=== PATIENT | female | born 1955 | race Hispanic/Latino ===

== ENCOUNTER 2018-04-13 13:11 | Observation (INO) | payer OTHER ==
[~2018-04-13] VITALS: Ht 142.2 cm; Wt 62.3 kg
[2018-04-13] MEDS ORDERED: ASPIRIN 325 MG TABLET ONE (13:44)
[2018-04-13] MEDS ORDERED: NITROGLYCERIN 1GM/1 INCH PACKET TD ONE (13:45)
[2018-04-13 13:53] LABS: BASOPHILS % (AUTO) 0.8 % (0.0-5.0); EOSINOPHILS % (AUTO) 2.2 % (0.0-8.0); HEMATOCRIT 37.8 % (36-48); LYMPHOCYTES % (AUTO) 24.1 % (21.0-51.0); MEAN CORPUSCULAR HEMOGLOBIN 30.1 pg (27.0-33.0); MEAN CORPUSCULAR HGB CONC 34.4 g/dL (32.0-36.0); MEAN CORPUSCULAR VOLUME 87.6 fL (79-99); MONOCYTES % (AUTO) 4.6 % (3.0-13.0); NEUTROPHILS % (AUTO) 68.3 % (40.0-77.0); PLATELET COUNT (AUTO) 265 K/uL (130-400); RED BLOOD CELL COUNT(AUTO) 4.31 MIL/uL (4.00-5.50); RED CELL DISTRIBUTION WIDTH 14.5 % (11.0-15.5); WHITE BLOOD COUNT (AUTO) 6.4 K/uL (4.8-10.8)
[2018-04-13 14:01] LABS: CREATININE 0.9 mg/dL (0.5-1.5); POTASSIUM 3.7 mmol/L (3.5-5.1)
[2018-04-13 14:08] LABS: ALBUMIN 4.3 g/dL (3.5-5.0); BILIRUBIN,DIRECT 0.1 mg/dL (0.0-0.3); BILIRUBIN,TOTAL 0.5 mg/dL (0.2-1.0); TOTAL PROTEIN, SERUM 8.1 g/dL (6.0-8.3)
[2018-04-13 14:14] LABS: INR 0.93 (0.85-1.15); PARTIAL THROMBOPLASTIN TIME 24.4 SEC (26.3-35.5); PROTHROMBIN TIME 9.8 SEC (9.6-11.6)
[2018-04-13 23:02] LABS: CREATINE KINASE MB 1.1 ng/mL (0.5-3.6); CREATINE KINASE, TOTAL 77 U/L (21-232); MYOGLOBIN 46 ng/mL (10-92); TROPONIN I < 0.04 ng/mL (0.00-0.06)
[2018-04-14] MEDS ORDERED: ENOXAPARIN SODIUM 60 MG/0.6 ML SQ ONE (02:07)
[2018-04-14 02:49] LABS: CREATINE KINASE MB 1.1 ng/mL (0.5-3.6); CREATINE KINASE, TOTAL 80 U/L (21-232); MYOGLOBIN 58 ng/mL (10-92); TROPONIN I < 0.04 ng/mL (0.00-0.06)
[2018-04-14] MEDS ORDERED: ATOR40TA69 PO (08:28)
[2018-04-14] MEDS ORDERED: METF500T6 PO (08:28)
[2018-04-14] MEDS ORDERED: PANT40TA25 PO (08:28)
[2018-04-14] MEDS ORDERED: SERT50TA12 PO (08:28)
[2018-04-14] MEDS ORDERED: OMEG-112 PO (08:28)
[2018-04-14] MEDS ORDERED: CLOP75TA14 PO (08:28)
[2018-04-14] MEDS ORDERED: NITR0.4T SL (08:35)
[2018-04-14] MEDS ORDERED: ATORVASTATIN CALCIUM 10 MG TABLET ONE (08:49)
[2018-04-14] MEDS ORDERED: METOPROLOL TARTRATE 25 MG TAB ONE (11:34)
[2018-04-14] MEDS ORDERED: REGADENOSON 0.4 MG/5 ML PF SYG IVP SCH (13:00)
[2018-04-14 14:40] VITALS: BP 138/75
[2018-04-14] MEDS ORDERED: NITROGLYCERIN 0.4 MG SL TAB SL SCH (15:15)
[2018-04-14 16:12] VITALS: BP 118/73
[2018-04-14] MEDS: INSULIN HUMULIN R 100 UNIT/ML 3ML SQ SCH ×2 (16:20→21:00)
[2018-04-14 17:58] LABS: CREATINE KINASE MB 0.9 ng/mL (0.5-3.6); CREATINE KINASE, TOTAL 79 U/L (21-232); MYOGLOBIN 45 ng/mL (10-92); TROPONIN I < 0.04 ng/mL (0.00-0.06)
[2018-04-14 20:00] VITALS: BP 138/68
[2018-04-14] MEDS ORDERED: SERTRALINE HCL 50 MG TABLET PO SCH (21:00)
[2018-04-14] MEDS ORDERED: ATORVASTATIN CALCIUM 20 MG TABLET PO SCH (21:00)
[2018-04-14] MEDS: METOPROLOL TARTRATE 25 MG TAB PO SCH (21:11)
[2018-04-14] MEDS ORDERED: PNEUMOCOCCAL VACCINE POLYVALENT 0.5 ML/VIAL [PPV] IM ONE (23:00)
[2018-04-14 23:46] VITALS: BP 114/64
[2018-04-15 04:00] VITALS: BP 110/63
[2018-04-15 05:54] LABS: MEAN CORPUSCULAR HEMOGLOBIN 30.3 pg (27.0-33.0); MEAN CORPUSCULAR HGB CONC 34.5 g/dL (32.0-36.0); MEAN CORPUSCULAR VOLUME 87.8 fL (79-99); PLATELET COUNT (AUTO) 251 K/uL (130-400); RED BLOOD CELL COUNT(AUTO) 4.22 MIL/uL (4.00-5.50); RED CELL DISTRIBUTION WIDTH 14.3 % (11.0-15.5); WHITE BLOOD COUNT (AUTO) 6.4 K/uL (4.8-10.8)
[2018-04-15] MEDS: INSULIN HUMULIN R 100 UNIT/ML 3ML SQ SCH ×2 (06:04→11:28)
[2018-04-15 06:09] LABS: CREATININE 0.8 mg/dL (0.5-1.5); MAGNESIUM 2.2 mg/dL (1.80-2.40); POTASSIUM 3.9 mmol/L (3.5-5.1)
[2018-04-15] MEDS ORDERED: PANTOPRAZOLE SODIUM 40 MG TABLET.DR PO SCH (07:30)
[2018-04-15 08:21] VITALS: BP 125/70
[2018-04-15] MEDS: METOPROLOL TARTRATE 25 MG TAB PO SCH (08:30)
[2018-04-15] MEDS ORDERED: FISH OIL 1000 MG/CAP PO SCH (09:00)
[2018-04-15] MEDS ORDERED: ENOXAPARIN SODIUM 40 MG/0.4 ML SYRINGE SQ SCH (09:00)
[2018-04-15] MEDS ORDERED: ASPIRIN 81MG TAB.CHEW PO SCH (09:00)
[2018-04-15] MEDS ORDERED: CLOPIDOGREL BISULFATE 75 MG TAB PO SCH (09:00)
[2018-04-15 11:21] VITALS: BP 116/60
[2018-04-15] MEDS ORDERED: ENOXAPARIN SODIUM 60 MG/0.6 ML SQ SCH (21:00)
== END 2018-04-15 15:30 | disposition home or self-care (01) ==
LOC: EDH 13:11 → EDHIP 14:44 → 4CH 04-14 12:21
PROVIDERS: ADMIT Internal Medicine Infectious Disease; ATTEND Internal Medicine Infectious Disease
DX: I25.110 Atherosclerotic heart disease of native coronary artery with unstable angina pectoris (principal); I10 Essential (primary) hypertension; E11.9 Type 2 diabetes mellitus without complications; F32.9 Major depressive disorder, single episode, unspecified; E78.5 Hyperlipidemia, unspecified; Z83.3 Family history of diabetes mellitus; Z95.5 Presence of coronary angioplasty implant and graft; Z90.49 Acquired absence of other specified parts of digestive tract; Z90.710 Acquired absence of both cervix and uterus; Z23 Encounter for immunization
CPT/HCPCS: 36415 ×3; 71045; 78452; 80048 ×2; 80076; 82550 ×4; 82553 ×3; 82948 ×4; 83735; 83874 ×3; 83880; 84484 ×4; 85025; 85027; 85610; 85730; 90471; 90732; 93005; 93017; 96372; 99285; A9500 ×2; G0378 ×49; J1650 ×2; J2785; 96374

== ENCOUNTER 2020-07-27 10:59 | Observation (INO) | payer OTHER ==
[~2020-07-27] VITALS: Ht 144.8 cm; Wt 58.6 kg
[~2020-07-27 10:59] MED LIST: ATOR40TA69 PO; CLOP75TA14 PO; METF-444 PO; NITR0.4T SL; OMEG-112 PO; PANT40TA55 PO; SERT50TA12 PO
[2020-07-27] MEDS ORDERED: ASPIRIN 325 MG TABLET ONE (11:10)
[2020-07-27 11:19] LABS: BASOPHILS % (AUTO) 0.4 % (0.0-5.0); EOSINOPHILS % (AUTO) 0.1 % (0.0-8.0); LYMPHOCYTES % (AUTO) 12.7 % (21.0-51.0); MEAN CORPUSCULAR HEMOGLOBIN 30.2 pg (27.0-33.0); MEAN CORPUSCULAR HGB CONC 33.8 g/dL (32.0-36.0); MEAN CORPUSCULAR VOLUME 89.2 fL (79-99); NEUTROPHILS % (AUTO) 83.4 % (40.0-77.0); PLATELET COUNT (AUTO) 281 K/uL (130-400); RED BLOOD CELL COUNT(AUTO) 4.37 MIL/uL (4.00-5.50); WHITE BLOOD COUNT (AUTO) 8.4 K/uL (4.8-10.8)
[2020-07-27 11:44] LABS: POTASSIUM 3.1 mmol/L (3.5-5.1)
[2020-07-27 11:50] LABS: ALBUMIN 4.4 g/dL (3.5-5.0); BILIRUBIN,TOTAL 0.8 mg/dL (0.2-1.0)
[2020-07-27 11:53] LABS: INR 0.93 (0.85-1.15); PARTIAL THROMBOPLASTIN TIME 23.8 SEC (26.3-35.5); PROTHROMBIN TIME 10.1 SEC (9.6-11.6)
[2020-07-27 11:57] LABS: B-TYPE NATRIURETIC PEPTIDE 14 pg/mL (0-100)
[2020-07-27] MEDS ORDERED: POTASSIUM CHLORIDE 20 MEQ ERTAB PO ONE (12:14)
[2020-07-27] MEDS ORDERED: ACETAMINOPHEN 325 MG TAB PO PRN (15:15)
[2020-07-27] MEDS ORDERED: HYDRALAZINE HCL 20 MG/ML VIAL IV PRN (15:15)
[2020-07-27] MEDS ORDERED: LIDOCAINE HCL-MPF 1% 2ML VIAL IV PRN (15:30)
[2020-07-27] MEDS ORDERED: POTASSIUM CHLORIDE 20MEQ/100ML 100 ML IV PRN (15:30)
[2020-07-27] MEDS ORDERED: POTASSIUM CHLORIDE 20 MEQ ERTAB PO PRN (15:30)
[2020-07-27] MEDS ORDERED: POTASSIUM CHLORIDE 10% ELIXIR 20 MEQ/15 ML UDCUP PO PRN (15:30)
[2020-07-27] MEDS: INSULIN HUMULIN R 100 UNIT/ML 3ML SQ SCH ×2 (16:30→21:00)
[2020-07-27] MEDS ORDERED: NITROGLYCERIN 0.4 MG SL TAB SL ONE (17:01)
[2020-07-27 19:00] VITALS: BP 138/73
[2020-07-27] MEDS ORDERED: NITROGLYCERIN 0.4 MG SL TAB SL PRN (20:15)
[2020-07-27] MEDS ORDERED: BACL10TA PO (20:33)
[2020-07-27] MEDS ORDERED: METF-444 PO (20:33)
[2020-07-27] MEDS ORDERED: PANT40TA54 PO (20:33)
[2020-07-27] MEDS ORDERED: ERGO500014 PO (20:33)
[2020-07-27] MEDS ORDERED: ASPI-1443 PO (20:33)
[2020-07-27] MEDS ORDERED: SUCR1TAB2 PO (20:33)
[2020-07-27] MEDS ORDERED: METO10TA3 PO (20:33)
[2020-07-27] MEDS ORDERED: ATOR40TA71 PO (20:33)
[2020-07-27] MEDS ORDERED: DULO30CA52 PO (20:33)
[2020-07-27] MEDS: HEPARIN SODIUM 5000UNIT/ML 1ML VIAL SQ SCH (20:49)
[2020-07-27 23:47] VITALS: BP 131/74
[2020-07-28 04:09] VITALS: BP 128/76
[2020-07-28] MEDS: INSULIN HUMULIN R 100 UNIT/ML 3ML SQ SCH ×4 (06:09→20:31)
[2020-07-28 06:25] LABS: BASOPHILS % (AUTO) 0.7 % (0.0-5.0); EOSINOPHILS % (AUTO) 1.9 % (0.0-8.0); HEMATOCRIT 39.8 % (36-48); LYMPHOCYTES % (AUTO) 31.2 % (21.0-51.0); MEAN CORPUSCULAR HEMOGLOBIN 29.7 pg (27.0-33.0); MEAN CORPUSCULAR HGB CONC 32.7 g/dL (32.0-36.0); MEAN CORPUSCULAR VOLUME 91.1 fL (79-99); MONOCYTES % (AUTO) 6.4 % (3.0-13.0); NEUTROPHILS % (AUTO) 59.5 % (40.0-77.0); PLATELET COUNT (AUTO) 265 K/uL (130-400); RED BLOOD CELL COUNT(AUTO) 4.37 MIL/uL (4.00-5.50); RED CELL DISTRIBUTION WIDTH 13.3 % (11.0-15.5); WHITE BLOOD COUNT (AUTO) 7.3 K/uL (4.8-10.8)
[2020-07-28 06:37] LABS: CREATININE 0.9 mg/dL (0.5-1.5); POTASSIUM 4.3 mmol/L (3.5-5.1)
[2020-07-28 08:10] VITALS: BP 139/74
[2020-07-28] MEDS: ASPIRIN 325 MG TABLET PO SCH (09:39)
[2020-07-28] MEDS: FAMOTIDINE/PF 20 MG/2 ML VIAL IV SCH ×2 (09:39→11:48)
[2020-07-28] MEDS: HEPARIN SODIUM 5000UNIT/ML 1ML VIAL SQ SCH ×3 (09:44→20:39)
[2020-07-28 11:21] VITALS: BP 128/81
--- NOTE | 2020-07-28 12:52 | NUR ---
CARDIAC CONSULT DR. JAIME VILLEGAS FOR CONSULT CP, SOB, CAD, CARDIAC STENT
[2020-07-28 16:13] VITALS: BP 126/90
[2020-07-28 20:00] VITALS: BP 132/77
--- NOTE | 2020-07-28 20:00 | NUR ---
ASSESSMENT NOTE PATIENT AWAKE, ALERT, OX3, NO SOB, NO C/O PAIN AT THIS TIME, DISCUSSED WITH PATIENT NPO PAST MIDNITE,TEACH PLAN OF CARE AND EXPECTED OUTCOME , patient verbalizes understanding via teach back
[2020-07-29] VITALS (7 sets, daily range): BP systolic 117–142; BP diastolic 57–79
[2020-07-29] MEDS: INSULIN HUMULIN R 100 UNIT/ML 3ML SQ SCH ×4 (06:05→21:00)
[2020-07-29 06:19] LABS: BASOPHILS % (AUTO) 0.5 % (0.0-5.0); EOSINOPHILS % (AUTO) 1.7 % (0.0-8.0); HEMATOCRIT 40.2 % (36-48); LYMPHOCYTES % (AUTO) 30.2 % (21.0-51.0); MEAN CORPUSCULAR HEMOGLOBIN 29.7 pg (27.0-33.0); MEAN CORPUSCULAR HGB CONC 32.3 g/dL (32.0-36.0); MONOCYTES % (AUTO) 4.9 % (3.0-13.0); NEUTROPHILS % (AUTO) 62.4 % (40.0-77.0); PLATELET COUNT (AUTO) 243 K/uL (130-400); RED BLOOD CELL COUNT(AUTO) 4.37 MIL/uL (4.00-5.50); RED CELL DISTRIBUTION WIDTH 13.3 % (11.0-15.5); WHITE BLOOD COUNT (AUTO) 6.5 K/uL (4.8-10.8)
[2020-07-29 06:51] LABS: ALBUMIN 3.8 g/dL (3.5-5.0); BILIRUBIN,TOTAL 0.5 mg/dL (0.2-1.0); CREATININE 0.8 mg/dL (0.5-1.5); TOTAL PROTEIN, SERUM 7.4 g/dL (6.0-8.3)
[2020-07-29] MEDS: ASPIRIN 325 MG TABLET PO SCH (09:00)
[2020-07-29] MEDS: HEPARIN SODIUM 5000UNIT/ML 1ML VIAL SQ SCH ×3 (09:00→20:27)
[2020-07-29] MEDS ORDERED: REGADENOSON 0.4 MG/5 ML PF SYG IVP SCH (11:45)
--- NOTE | 2020-07-29 14:10 | NUR ---
[facility] PT IS AAOX 3 ERIK FIRST PART OF [facility] WILL FINISH THE REST OF TEST LATER TODAY
--- NOTE | 2020-07-29 17:55 | NUR ---
INITIAL SW spoke with patient. Patient lives with spouse, Rosalio Ocasio. She has no home services. DME: [facility]. Patient is able to complete ADL's independently and drives. She is still working guitar instructor. PCP is Dr. Luke Jaime. Pharmacy is [facility] located in [place]. No safety issues voiced about returning home after discharge. DCP is home. Addendum: 07/29/20 at 1756 by CHRISTOPHER THURMAN SS Amended: Links added.
--- NOTE | 2020-07-29 18:47 | NUR ---
[facility] HAND TUBE WINDER FOR D/C ORDERS
[2020-07-30 03:55] VITALS: BP 126/71
[2020-07-30] MEDS: INSULIN HUMULIN R 100 UNIT/ML 3ML SQ SCH (05:41)
[2020-07-30 06:08] LABS: HEMATOCRIT 39.2 % (36-48); MEAN CORPUSCULAR HGB CONC 33.2 g/dL (32.0-36.0); MEAN CORPUSCULAR VOLUME 90.5 fL (79-99); PLATELET COUNT (AUTO) 249 K/uL (130-400); RED BLOOD CELL COUNT(AUTO) 4.33 MIL/uL (4.00-5.50); RED CELL DISTRIBUTION WIDTH 13.2 % (11.0-15.5); WHITE BLOOD COUNT (AUTO) 6.6 K/uL (4.8-10.8)
[2020-07-30 06:28] LABS: ALBUMIN 3.7 g/dL (3.5-5.0); BILIRUBIN,TOTAL 0.5 mg/dL (0.2-1.0); CREATININE 0.8 mg/dL (0.5-1.5); POTASSIUM 3.4 mmol/L (3.5-5.1); TOTAL PROTEIN, SERUM 7.3 g/dL (6.0-8.3)
[2020-07-30 07:20] LABS: BASOPHILS % (MANUAL) 1 % (0-2); EOSINOPHILS % (MANUAL) 1 % (1-6); LYMPHOCYTES % (MANUAL) 34 % (22-44); MAN.DIFF COMMENT-IMPRESSION MANUAL DIFFERENTIAL; MONOCYTES % (MANUAL) 4 % (2-9); PLATELET MORPHOLOGY COMMENT ADEQUATE; REACTIVE LYMPHOCYTES 1 % (0-0); SEGMENTED NEUTROPHILS % 59 % (40-70)
[2020-07-30 07:30] VITALS: BP 125/65
[2020-07-30] MEDS ORDERED: DULOXETINE HCL 30 MG CAP PO SCH (09:00)
[2020-07-30] MEDS: ASPIRIN 325 MG TABLET PO SCH (09:25)
[2020-07-30] MEDS: FAMOTIDINE/PF 20 MG/2 ML VIAL IV SCH (09:26)
[2020-07-30] MEDS: HEPARIN SODIUM 5000UNIT/ML 1ML VIAL SQ SCH (09:26)
[2020-07-30] MEDS ORDERED: DULO30CA2 PO (09:47)
== END 2020-07-30 11:10 | disposition home or self-care (01) ==
LOC: EDH 10:59 → EDHIP 15:11 → 3AH 18:28 → 3BH 07-30 05:05
PROVIDERS: ADMIT Internal Medicine; ATTEND Internal Medicine
DX: R07.2 Precordial pain (principal); Z20.828 Contact with and (suspected) exposure to other viral communicable diseases; I25.110 Atherosclerotic heart disease of native coronary artery with unstable angina pectoris; K21.9 Gastro-esophageal reflux disease without esophagitis; I10 Essential (primary) hypertension; F32.9 Major depressive disorder, single episode, unspecified; E78.5 Hyperlipidemia, unspecified; E87.6 Hypokalemia; E11.65 Type 2 diabetes mellitus with hyperglycemia; F41.9 Anxiety disorder, unspecified; Z95.5 Presence of coronary angioplasty implant and graft
CPT/HCPCS: 36415 ×4; 71045; 78452; 80048; 80053 ×3; 80061; 82550; 82948 ×10; 83880; 84484 ×4; 85025 ×4; 85378; 85610; 85730; 87426; 93005 ×3; 93017; 93306; 93356; 94760; 96372 ×4; 96374; 96376 ×2; 99285; A4606; A9500 ×2; G0378 ×10; J1644 ×5; J2785; J3490 ×2; U0003

== ENCOUNTER → 2022-06-09 | Outpatient (CLI) | payer OTHER ==
[~2022-06-09] MED LIST changes: +ASPI-1443 PO; -ATOR40TA69 PO; +ATOR40TA71 PO; +BACL10TA PO; +DULO30CA2 PO; +DULO30CA52 PO; +ERGO500093 PO; -OMEG-112 PO; +PANT40TA54 PO; -PANT40TA55 PO; -SERT50TA12 PO; +SUCR1TAB2 PO
== END | disposition home or self-care (01) ==
LOC: SHCH 10:31
PROVIDERS: ATTEND Internal Medicine Cardiovascular Disease
DX: I87.2 Venous insufficiency (chronic) (peripheral) (principal); K21.9 Gastro-esophageal reflux disease without esophagitis
CPT/HCPCS: 93970

== ENCOUNTER → 2024-06-08 | Outpatient (CLI) | payer OTHER ==
[~2024-06-08] MED LIST changes: +CLOP-31 PO; -CLOP75TA14 PO
== END | disposition home or self-care (01) ==
LOC: RAH 10:02
PROVIDERS: ATTEND Internal Medicine Gastroenterology
DX: K30 Functional dyspepsia (principal); R68.81 Early satiety
CPT/HCPCS: 78264; A9541

== ENCOUNTER → 2025-01-23 | Outpatient (CLI) | payer OTHER ==
--- NOTE | 2025-01-25 22:03 | HMCSR ---
APPROVED REPORT Bilateral Lower Extremity Venous Study for DVT., Venous Competence. Indications PVD Vein Imaging CFV (R): Normal flow, augmentation and compression. No evidence of DVT. 7.2mm 383ms of reflux. SFJ (R): Normal flow, augmentation and compression. No evidence of DVT. FEM (R): Normal flow, augmentation and compression. No evidence of DVT. POP (R): Normal flow, augmentation and compression. No evidence of DVT. DFV (R): Normal flow, augmentation and compression. No evidence of DVT. PTV (R): Normal flow, augmentation and compression. No evidence of DVT. Peroneals (R): Normal flow, augmentation and compression. No evidence of DVT. CFV (L): Normal flow, augmentation and compression. No evidence of DVT. 8.1mm 344ms of reflux. SFJ (L): Normal flow, augmentation and compression. No evidence of DVT. FEM (L): Normal flow, augmentation and compression. No evidence of DVT. POP (L): Normal flow, augmentation and compression. No evidence of DVT. DFV (L): Normal flow, augmentation and compression. No evidence of DVT. PTV (L): Normal flow, augmentation and compression. No evidence of DVT. Peroneals (L): Normal flow, augmentation and compression. No evidence of DVT. Technologist Impression Deep Veins of bilateral lower extremities appear patent and compressible without thrombus. No significant deep vein reflux. No significant superficial venous insufficiency seen. RGSV junction 4.3mm 233ms thigh 1.5mm 200ms knee 1.4mm 0.0ms calf 0.9mm 233ms RSSV prox 1.0 144ms Mid 1.5mm 144ms LGSV junction 2.5mm 217ms thigh 1.3mm 117ms knee 1.5mm 211ms calf 1.3mm 0.0ms LSSV Prox 1.0mm 0.0ms Mid 1.0mm 0.0ms Conclusion No significant deep vein reflux. No significant superficial venous insufficiency seen. No DVT Conclusion No significant deep vein reflux. No significant superficial venous insufficiency seen. No DVT
--- NOTE | 2025-01-25 22:04 | HMCSR ---
APPROVED REPORT Laterality: Bilateral Indications PVD VELOCITY AND DOPPLER WAVEFORM ANALYSIS RUG CUTTER HELPER (R) 118.1cm/sec, Biphasic, RUG CUTTER HELPER (L) 127.0cm/sec, Triphasic, Prof Fem Art. (R) 80.8cm/sec, Biphasic, Prof Fem Art. (L) 76.3cm/sec, Biphasic, Fem Art Prox. (R) 103.0cm/sec, Biphasic, Fem Art Prox. (L) 117.3cm/sec, Biphasic, Fem Art Mid. (R) 78.1cm/sec, Biphasic, Fem Art Mid. (L) 78.1cm/sec, Biphasic, Fem Art Dist (R) 70.9cm/sec, Biphasic, Fem Art Dist. (L) 79.0cm/sec, Biphasic, Pop Art(AK) (R) 66.1cm/sec, Biphasic, Pop Art (AK) (L) 78.1cm/sec, Biphasic, Pop Art (Fossa)(R) 60.0cm/sec, Biphasic, Pop Art (Fossa) (L) 60.1cm/sec, Biphasic, Pop Art(BK) (R) 85.6cm/sec, Biphasic, Pop Art (BK) (L) 71.8cm/sec, Biphasic, SECURITY TECHNICIAN Dist. (R) 37.6cm/sec, Biphasic, SECURITY TECHNICIAN Dist. (L) 55.9cm/sec, Biphasic, Per Art Dist. (R) 38.1cm/sec, Biphasic, Per Art Dist. (L) 51.6cm/sec, Biphasic, EDUARDO Dist. (R) 51.6cm/sec, Biphasic, EDUARDO Dist. (L) 59.2cm/sec, Biphasic, Technologist Impression No evidence of significant arterial insufficiency of bilateral lower extremities. Multiphasic waveforms seen. Conclusion No evidence of significant arterial insufficiency of bilateral lower extremities. Conclusion No evidence of significant arterial insufficiency of bilateral lower extremities.
== END | disposition home or self-care (01) ==
LOC: SHCH 08:00
PROVIDERS: ATTEND Internal Medicine Cardiovascular Disease
DX: I73.9 Peripheral vascular disease, unspecified (principal); I87.1 Compression of vein; I87.2 Venous insufficiency (chronic) (peripheral)
CPT/HCPCS: 93925; 93970

== ENCOUNTER → 2025-03-06 | Outpatient (CLI) | payer OTHER ==
[2025-03-06 16:14] LABS: BASOPHILS # (AUTO) 0.04 K/uL (0.00-0.20); BASOPHILS % (AUTO) 0.6 % (0.0-5.0); EOSINOPHILS % (AUTO) 1.5 % (0.0-8.0); HEMATOCRIT 39.9 % (36-48); IMMATURE GRANULOCYTE ABSOLUTE 0.04 K/uL (0-1); LYMPHOCYTES # (AUTO) 1.7 K/uL (1.0-4.8); LYMPHOCYTES % (AUTO) 26.5 % (21.0-51.0); MEAN CORPUSCULAR HEMOGLOBIN 30.2 pg (27.0-33.0); MEAN CORPUSCULAR HGB CONC 31.8 g/dL (32.0-36.0); MONOCYTES # (AUTO) 0.3 K/uL (0.1-1.0); MONOCYTES % (AUTO) 5.2 % (3.0-13.0); NEUTROPHILS # (AUTO) 4.3 K/uL (1.8-7.7); NEUTROPHILS % (AUTO) 65.6 % (40.0-77.0); PLATELET COUNT (AUTO) 251 K/uL (130-400); RED CELL DISTRIBUTION WIDTH 13.7 % (11.0-15.5); WHITE BLOOD COUNT (AUTO) 6.5 K/uL (4.8-10.8)
[2025-03-06 16:23] LABS: INR <= 0.93 (0.85-1.15); PROTHROMBIN TIME 9.7 SEC (9.6-11.6)
[2025-03-06 16:25] LABS: PARTIAL THROMBOPLASTIN TIME 25.9 SEC (26.3-35.5)
[2025-03-06 16:27] LABS: POTASSIUM 4.4 mmol/L (3.5-5.1)
== END | disposition home or self-care (01) ==
LOC: LAB 11:55
PROVIDERS: ATTEND Physician Assistant
DX: Z01.812 Encounter for preprocedural laboratory examination (principal); I87.1 Compression of vein; R60.0 Localized edema; I25.10 Atherosclerotic heart disease of native coronary artery without angina pectoris; I10 Essential (primary) hypertension; E78.5 Hyperlipidemia, unspecified; G47.62 Sleep related leg cramps; M79.604 Pain in right leg; Z95.5 Presence of coronary angioplasty implant and graft
CPT/HCPCS: 36415; 80048; 85025; 85610; 85730